=== PATIENT | male | born 1950 | race Caucasian/White ===

== ENCOUNTER 2017-02-05 11:18 | Emergency (ER) | payer BC, OTHER ==
--- NOTE | 2017-02-05 11:29 | ER Document Report ---
ED General - General Stated Complaint: FALL FACE INJURY Time Seen by Provider: 02/05/17 11:25 Mode of Arrival: Ambulatory Information source: Patient Notes: 66-year-old male presents after mechanical fall striking his face and his head. Patient is on baby aspirin daily. Patient notes that his shoelace got stuck on the tree branch that he was cutting when he turned he fell. Patient denies any chest pain shortness breath difficulty breathing or any other concerns associated with this for - HPI Onset: Just prior to arrival Onset/Duration: Sudden Quality of pain: Achy Severity: None Pain Level: Denies Associated symptoms: None Exacerbated by: Denies Relieved by: Denies Similar symptoms previously: No Recently seen / treated by doctor: No Past Medical History - Social History Smoking Status: Never Smoker Cigarette use (# per day): No Chew tobacco use (# tins/day): No Smoking Education Provided: No Family History: Reviewed & Not Pertinent Review of Systems - Review of Systems Notes: REVIEW OF SYSTEMS: CONSTITUTIONAL : Denies fever, chills, or sweats. Denies recent illness. EENT: Denies eye, ear, throat, or mouth pain or symptoms. Denies nasal or sinus congestion or discharge. Denies throat, tongue, or mouth swelling or difficulty swallowing. CARDIOVASCULAR: Denies chest pain. Denies palpitations or racing or irregular heart beat. Denies ankle edema. RESPIRATORY: Denies cough, cold, or chest congestion. Denies shortness of breath, difficulty breathing, or wheezing. GASTROINTESTINAL: Denies abdominal pain or distention. Denies nausea, vomiting , or diarrhea. Denies blood in vomitus, stools, or per rectum. Denies black, tarry stools. Denies constipation. GENITOURINARY: Denies difficulty urinating, painful urination, burning, frequency, blood in urine, or discharge. FEMALE GENITOURINARY: Denies vaginal bleeding, heavy or abnormal periods, irregular periods. Denies vaginal discharge or odor. MUSCULOSKELETAL: Denies back or neck pain or stiffness. Denies joint pain or swelling. SKIN: Abrasion chin to face HEMATOLOGIC : Denies easy bruising or bleeding. LYMPHATIC: Denies swollen, enlarged glands. NEUROLOGICAL: Denies confusion or altered mental status. Denies passing out or loss of consciousness. Denies dizziness or lightheadedness. Denies headache. Denies weakness or paralysis or loss of use of either side. Denies problems with gait or speech. Denies sensory loss, numbness, or tingling. Denies seizures. PSYCHIATRIC: Denies anxiety or stress. Denies depression, suicidal ideation, or homicidal ideation. ALL OTHER SYSTEMS REVIEWED AND NEGATIVE. PHYSICAL EXAMINATION: GENERAL: Well-appearing, well-nourished and in no acute distress. HEAD: Contusions noted to anterior frontal scalp nasal bridge EYES: Pupils equal round and reactive to light, extraocular movements intact, conjunctiva are normal. ENT: Nares patent, oropharynx clear without exudates. Moist mucous membranes. NECK: Normal range of motion, supple without lymphadenopathy LUNGS: Breath sounds clear to auscultation bilaterally and equal. No wheezes rales or rhonchi. HEART: Regular rate and rhythm without murmurs ABDOMEN: Soft, nontender, nondistended abdomen. No guarding, no rebound. No masses appreciated. Female : deferred Musculoskeletal: Normal range of motion, no pitting or edema. No cyanosis. NEUROLOGICAL: Cranial nerves grossly intact. Normal speech, normal gait. Normal sensory, motor exams PSYCH: Normal mood, normal affect. SKIN: Skin abrasions noted no laceration Dictation was performed using [email or web address]. voice recognition software Physical Exam - Vital signs Vitals: Temp Pulse Resp BP Pulse Ox 97.9 F 80 20 113/67 96 02/05/17 11:29 02/05/17 11:29 02/05/17 11:29 02/05/17 11:29 02/05/17 11:29 Course - Re-evaluation Re-evalutation: 02/05/17 11:29 CT imaging is pending, patient has probable nasal fracture, his nasal airways otherwise intact there is no active bleeding no septal hematoma Tetanus will be updated 02/05/17 12:25 CT imaging noted no significant abnormality, there was a possibility of a hairline fracture on the orbital floor however the patient has no tenderness there otherwise has full range of motion of his pupils. Patient will be given strict follow-up precautions family is happy with this plan After performing a Medical Screening Examination, I estimate there is LOW risk for INTRACRANIAL HEMORRHAGE, UNSTABLE SPINE FRACTURE, CENTRAL CORD SYNDROME, CAUDA EQUINA, THORACIC AORTIC DISSECTION, PNEUMOTHORAX, PERFORATED BOWEL, RUPTURED ABDOMINAL AORTIC ANEURYSM, ACUTE TENDON RUPTURE, COMPARTMENT SYNDROME, or OPEN FRACTURE, thus I consider the discharge disposition reasonable. Also, there is no evidence or peritonitis, sepsis, or toxicity. I have reevaluated this patient multiple times and no significant life threatening changes are noted. The patient and I have discussed the diagnosis and risks, and we agree with discharging home to follow-up with their primary doctor with the understanding that symptoms and presentations can change. We also discussed returning to the Emergency Department immediately if new or worsening symptoms occur. We have discussed the symptoms which are most concerning (e.g., bloody stool, fever, changing or worsening pain, vomiting) that necessitate immediate return. - Vital Signs Vital signs: Temp Pulse Resp BP Pulse Ox 97.9 F 80 11 L 115/73 95 02/05/17 11:29 02/05/17 11:29 02/05/17 12:01 02/05/17 12:01 02/05/17 12:01 - Diagnostic Test Radiology reviewed: Image reviewed, Reports reviewed Discharge - Discharge Clinical Impression: Syncope and collapse Facial injury Qualifiers: Encounter type: initial encounter Qualified Code(s): S09.93XA - Unspecified injury of face, initial encounter Condition: Stable Disposition: HOME, SELF-CARE Instructions: Abrasions of the Face ([facility]) Referrals: FLACO COLÓN MD [Primary Care Provider] - Follow up in 3-5 days
[2017-02-05] MEDS ORDERED: DIPH/PERTUSS(ACELL)/TETANUS VAC/PF 0.5 ML SYR (>=10YO) IM ONE (11:31)
--- NOTE | 2017-02-05 12:00 | RADIOLOGY REPORT (SQ) ---
EXAM DESCRIPTION: CT HEAD WITHOUT COMPLETED DATE/TIME: 02/05/2017 11:50 am REASON FOR STUDY: fall COMPARISON: CT facial bones same date TECHNIQUE: Axial images acquired through the brain without intravenous contrast. Images reviewed wi th bone, brain and subdural windows. Images stored on PACS. All CT scanners at this facility use dose modulation, iterative reconstruction, and/or weight based d osing when appropriate to reduce radiation dose to as low as reasonably achievable (ALARA). [facility]: Dose Right [facility]: CareDose [facility]: Dose Right [facility]: Teradose 4D [facility]: Smart [employer] RADIATION DOSE: Up-to-date CT equipment and radiation dose reduction techniques were employed. CTDIv ol: 64.6 mGy. DLP: 1163 mGy-cm. mGy. LIMITATIONS: None. FINDINGS: VENTRICLES: Normal size and contour. CEREBRUM: No masses. No hemorrhage. No midline shift. No evidence for acute infarction. Normal gra y/white matter differentiation. No areas of low density in the white matter. CEREBELLUM: No masses. No hemorrhage. No alteration of density. No evidence for acute infarction. EXTRAAXIAL SPACES: No fluid collections. No masses. ORBITS AND GLOBE: No intra- or extraconal masses. Normal contour of globe without masses. CALVARIUM: No fracture. PARANASAL SINUSES: Bilateral mucous or serous retention cysts in the floor of the right and left maxi llary sinuses SOFT TISSUES: No mass or hematoma. OTHER: No other significant finding. IMPRESSION: NORMAL BRAIN CT WITHOUT CONTRAST. COMMENT: Quality ID # [id number]: Final reports with documentation of one or more dose reduction techniques (e.g., Automated exposure control, adjustment of the mA and/or kV according to patient size, use of iterative reconstruction technique) TECHNICAL DOCUMENTATION: JOB ID: [id number] [email or web address]- All Rights Reserved
--- NOTE | 2017-02-05 12:04 | RADIOLOGY REPORT (SQ) ---
EXAM DESCRIPTION: CT FACIAL AREA WITHOUT COMPLETED DATE/TIME: 02/05/2017 11:50 am REASON FOR STUDY: fall COMPARISON: CT brain same date TECHNIQUE: Noncontrasted images through the facial bones and orbits windowed for bone and soft tissu e. Additional coronal and sagittal reconstructed images reviewed. All images stored on PACS. All CT scanners at this facility use dose modulation, iterative reconstruction, and/or weight based d osing when appropriate to reduce radiation dose to as low as reasonably achievable (ALARA). [facility]: Dose Right [facility]: CareDose [facility]: Dose Right [facility]: Teradose 4D [facility]: [employer] RADIATION DOSE: Up-to-date CT equipment and radiation dose reduction techniques were employed. CTDIv ol: 30.4 mGy. DLP: 593 mGy-cm. mGy. LIMITATIONS: None. FINDINGS: FACIAL BONES: Question nondisplaced hairline right orbital floor fracture marked with arro ws on axial image 44 and 45. There is no adjacent hemorrhage in the orbital floor extraconal fat. N o air-fluid level in the right maxillary sinus. Remainder of the facial bones are intact. ORBITS: Symmetric intact globes and retroorbital soft tissues. PARANASAL SINUSES: Mucous membrane thickening and mucus or serous retention cysts in the floor of the right and left maxillary sinuses. Mild mucous membrane thickening along the left maxillary sinus ou tlet. Paranasal sinuses are otherwise unremarkable. SOFT TISSUES: No mass or edema. INFERIOR BRAIN: Limited view. No acute findings. OTHER: No other significant finding. IMPRESSION: Question hairline nondisplaced fracture through the right orbital floor seen on axial im ages only TECHNICAL DOCUMENTATION: JOB ID: [id number] Quality ID # [id number]: Final reports with documentation of one or more dose reduction techniques (e.g., Au tomated exposure control, adjustment of the mA and/or kV according to patient size, use of iterative reconstruction technique) 2010 [employer]- All Rights Reserved
[2017-02-05 13:08] VITALS: BP 115/72
== END 2017-02-05 13:08 | disposition home or self-care (01) ==
LOC: ER 11:18
DX: S09.93XA Unspecified injury of face, initial encounter (principal); R55 Syncope and collapse; W01.0XXA Fall on same level from slipping, tripping and stumbling without subsequent striking against object, initial encounter; Z23 Encounter for immunization
CPT/HCPCS: 70450; 70486; 90471; 90715; 99284

== ENCOUNTER 2017-03-21 10:48 | Emergency (ER) | payer BC, OTHER ==
--- NOTE | 2017-03-21 11:03 | ER Document Report ---
ED Syncope and Near Syncope - General Chief Complaint: Syncope Stated Complaint: POSSIBLE SYNCOPE Time Seen by Provider: 03/21/17 10:58 Mode of Arrival: Medic Information source: Patient TRAVEL OUTSIDE OF THE [place] IN LAST 30 DAYS: No - HPI Patient complains to provider of: Fainting Episode witnessed (by whom): Yes - STAFF & CUSTOMERS @ [facility] Single episoded occurred: JUST PRIOR TO E.D. Symptoms prior to episode: Abdominal pain - CRAMPY, Lightheaded. No: Fever, Headache, Palpitations, Racing heart, Short of breath Position/Activity at time of episode: Standing Details of activity: FELT URGENCY FOR BM, WAS HURRYING TO RESTROOM Quality of pain: Cramping Severity: Mild Context: Collapsed, Incontinent of stool, Lost consciousness. denies: Confused after event, Seizure activity observed Duration of LOC (min): LESS THAN 1 Injury location: Face - R. MAXILLARY & ZYGOMATIC Current symptoms: None/feels back to normal Similar symptoms previously: Yes - Related Data Allergies/Adverse Reactions: No Known Allergies Allergy (Verified 03/21/17 11:07) Past Medical History - General Information source: Patient - Social History Smoking Status: Never Smoker Cigarette use (# per day): No Chew tobacco use (# tins/day): No Frequency of alcohol use: Rare Drug Abuse: None Lives with: Spouse/Significant other Family History: Reviewed & Not Pertinent Patient has suicidal ideation: No Patient has homicidal ideation: No - Past Medical History Cardiac Medical History: Reports: Hx Hypertension Pulmonary Medical History: Reports: None EENT Medical History: Reports: None Neurological Medical History: Reports: None Endocrine Medical History: Reports: None Renal/ Medical History: Reports: None Malignancy Medical History: Reports None GI Medical History: Reports: None Musculoskeltal Medical History: Reports Hx Arthritis Psychiatric Medical History: Reports: None Surgical Hx: Negative - Immunizations Hx Diphtheria, Pertussis, Tetanus Vaccination: Yes - Pt reports he is "Probably due" Review of Systems - Review of Systems Constitutional: See HPI EENT: No symptoms reported Cardiovascular: Syncope Respiratory: No symptoms reported Gastrointestinal: See HPI Genitourinary: No symptoms reported Musculoskeletal: No symptoms reported Skin: No symptoms reported Hematologic/Lymphatic: No symptoms reported. denies: Easy bleeding, Easy bruising Neurological/Psychological: See HPI Physical Exam - Vital signs Vitals: Temp 98.6 F 10/28/17 10:50 Interpretation: Hypotensive. No: Tachycardic, Tachypneic, Febrile - General General appearance: Appears well, Alert In distress: None - HEENT Head: Normocephalic Eyes: Normal. No: Pale conjunctiva Conjunctiva: Normal Ears: Normal Nasal: Normal Mouth/Lips: Normal Mucous membranes: Normal Pharynx: Normal Neck: Normal, Supple - Respiratory Respiratory status: No respiratory distress Breath sounds: Normal - Cardiovascular Rhythm: Regular Heart sounds: Normal auscultation Murmur: No - Abdominal Inspection: Normal Distension: No distension Bowel sounds: Hypoactive Tenderness: Nontender - Back Back: Normal - Extremities General upper extremity: Normal inspection General lower extremity: Normal inspection. No: Tender, Edema - Neurological Neuro grossly intact: Yes Cognition: Normal Orientation: AAOx4 - Psychological Associated symptoms: Normal affect, Normal mood - Skin Skin Temperature: Warm Skin Moisture: Dry Skin Color: Normal Skin Turgor: Elastic Skin irregularity: other - ABRASION R. MALAR AREA, PARTIAL THICKNESS Course - Re-evaluation Re-evalutation: 03/21/17 13:23 Patient states he is much improved. Denies complaints. Tolerated orthostatic testing well. Will discharge to home care with outpatient follow-up. - Vital Signs Vital signs: Temp Pulse Resp BP Pulse Ox 98.6 F 85 10 L 134/76 H 98 03/21/17 10:50 03/21/17 12:45 03/21/17 11:00 03/21/17 12:45 03/21/17 11:00 - Laboratory Result Diagrams: 03/21/17 10:55 03/21/17 10:55 Laboratory results interpreted by me: 03/21/17 03/21/17 10:55 11:15 Glucose 146 H Direct Bilirubin 0.5 H Urine Ketones TRACE H Urine Urobilinogen 2.0 H - EKG Interpretation by Mn EKG shows normal: Sinus rhythm, [place], Intervals, QRS Complexes. abnormal: ST-T Waves - ANT/LAT T ABNLS, NS Rate: Normal Rhythm: NSR Discharge - Discharge Clinical Impression: Enteritis, Occult blood positive stool Syncope Qualifiers: Syncope type: vasovagal syncope Qualified Code(s): R55 - Syncope and collapse Abrasion of face Qualifiers: Encounter type: initial encounter Qualified Code(s): S00.81XA - Abrasion of other part of head, initial encounter Condition: Stable Disposition: HOME, SELF-CARE Instructions: Syncopal Episode ([facility]), Gastroenteritis (adult) ([facility]), Positive Test for Blood in Stool ([facility]) Additional Instructions: REST, DRINK PLENTY OF FLUIDS. FOLLOW UP WITH YOUR PRIMARY CARE PROVIDER, YOU MAY NEED FURTHER TESTS DONE BECAUSE OF BLOOD FOUND IN YOUR STOOL. RETURN TO E.R. IF PROBLEMS, ANY TIME.
[2017-03-21 12:02] LABS: ABSOLUTE BASOPHILS # (AUTO) 0.1 10^3/uL (0.0-0.2); ABSOLUTE EOSINOPHILS # (AUTO) 0.2 10^3/uL (0.0-0.6); ABSOLUTE LYMPHOCYTES (AUTO) 2.3 10^3/uL (0.5-4.7); ABSOLUTE MONOCYTES (AUTO) 0.7 10^3/uL (0.1-1.4); ABSOLUTE NEUT (AUTO) 4.1 10^3/uL (1.7-8.2); BASOPHILS % (AUTO) 0.7 % (0-2); EOSINOPHILS % (AUTO) 2.8 % (0-6); HEMATOCRIT 41.9 % (37.9-51.0); HEMOGLOBIN 14.5 g/dL (13.5-17.0); HGB HCT DIFFERENCE 1.6; LYMPHOCYTES % (AUTO) 31.4 % (13-45); MEAN CORPUSCULAR HEMOGLOBIN 32.4 pg (27.0-33.4); MEAN CORPUSCULAR HGB CONC 34.7 g/dL (32.0-36.0); MEAN CORPUSCULAR VOLUME 93 fl (80-97); MONOCYTES % (AUTO) 9.5 % (3-13); RED BLOOD COUNT 4.48 10^6/uL (4.35-5.55); SEGMENTED NEUTROPHILS % (AUTO) 55.6 % (42-78); WHITE BLOOD COUNT 7.4 10^3/uL (4.0-10.5)
[2017-03-21 12:08] LABS: APPEARANCE,URINE SLIGHTLY-CLOUDY; BILIRUBIN,URINE NEGATIVE (NEGATIVE); GLUCOSE, URINE NEGATIVE (NEGATIVE); KETONES,URINE TRACE mg/dL (NEGATIVE); LEUKOCYTE ESTERASE,URINE NEGATIVE (NEGATIVE); NITRITE,URINE NEGATIVE (NEGATIVE); PROTEIN,URINE NEGATIVE (NEGATIVE); URINE SPECIFIC GRAVITY 1.013
[2017-03-21 12:16] LABS: ALANINE AMINOTRANSFERASE 36 U/L (21-72); ALKALINE PHOSPHATASE 65 U/L (38-126); ANION GAP 12 (5-19); ASPARTATE AMINO TRANSFERASE 26 U/L (17-59); BILIRUBIN,DIRECT 0.5 mg/dL (0.0-0.4); BILIRUBIN,TOTAL 0.8 mg/dL (0.2-1.3); BLOOD UREA NITROGEN 16 mg/dL (7-20); CALCIUM 9.2 mg/dL (8.4-10.2); CARBON DIOXIDE 29 mmol/L (22-30); CHLORIDE 103 mmol/L (98-107); GLUCOSE 146 mg/dL (75-110); POTASSIUM 3.8 mmol/L (3.6-5.0); SODIUM 143.8 mmol/L (137-145); TOTAL PROTEIN 6.7 g/dL (6.3-8.2)
[2017-03-21 12:28] LABS: CREATINE KINASE MB 2.13 ng/mL (<4.55)
[2017-03-21 12:29] LABS: TROPONIN I < 0.012 ng/mL
[2017-03-21 12:46] LABS: PROTHROMBIN TIME 13.7 SEC (11.4-15.4)
--- NOTE | 2017-03-21 13:39 | EKG REPORT ---
SEVERITY:- BORDERLINE ECG - SINUS RHYTHM BORDERLINE T ABNORMALITIES, ANT-LAT LEADS : Confirmed by: Delbert Yun 21-Mar-2017 13:38:59
[2017-03-21 13:40] VITALS: BP 121/75
== END 2017-03-21 13:44 | disposition home or self-care (01) ==
LOC: ER 10:48
DX: S00.81XA Abrasion of other part of head, initial encounter (principal); K52.9 Noninfective gastroenteritis and colitis, unspecified; R19.5 Other fecal abnormalities; R55 Syncope and collapse; X58.XXXA Exposure to other specified factors, initial encounter
CPT/HCPCS: 36415; 80053; 81001; 82272; 82553; 84484; 85025; 85610; 85730; 93005; 93010; 99284

== ENCOUNTER → 2017-05-21 | Outpatient (CLI) | payer MEDICARE, OTHER ==
--- NOTE | 2017-05-21 14:34 | RADIOLOGY REPORT (SQ) ---
EXAM DESCRIPTION: U/S RETROPERITON (RENAL/AORTA) COMPLETED DATE/TIME: 05/21/2017 2:13 pm REASON FOR STUDY: CALCULUS OF KIDNEY WITH CALCULUS OF URETER (N20.2) N20.2 CALCULUS OF KIDNEY WITH CALCULUS OF URETER COMPARISON: None. TECHNIQUE: Dynamic and static grayscale images acquired of the kidneys and bladder and recorded on P ACS. Additional selected color Doppler and spectral images recorded. LIMITATIONS: None. FINDINGS: RIGHT KIDNEY: 12.6 cm in length. Normal echogenicity. A complex area is identified me asuring 2.5 x 2.3 x 2.8 cm in diameters which may represent a complex cyst with a thick walled international logistics manager al septation. CT may be of value for further evaluation. No hydronephrosis. No calcifications. LEFT KIDNEY: 12.2 cm in length. Normal echogenicity. No solid or suspicious masses. There is m ild hydronephrosis of the left kidney and the possibility of a distal obstruction cannot be excluded. Echogenic foci are identified most consistent with nonobstructing renal calculi. BLADDER: No masses. OTHER FINDINGS: No other significant finding. IMPRESSION: Echogenic foci in the left kidney consistent with nonobstructing renal calculi. There i s mild hydronephrosis of the left kidney and the possibility of a distal obstruction cannot be exclud ed. Complex area in the right kidney as noted above. CT may be of value for further evaluation. Ot her findings as noted above TECHNICAL DOCUMENTATION: JOB ID: [id number] [employer]- All Rights Reserved
== END ==
LOC: RAD 13:07
PROVIDERS: ATTEND Family Medicine
DX: N20.2 Calculus of kidney with calculus of ureter (principal)
CPT/HCPCS: 76770

== ENCOUNTER → 2017-08-12 | Outpatient (CLI) | payer MEDICARE, OTHER ==
--- NOTE | 2017-08-12 09:52 | RADIOLOGY REPORT (SQ) ---
EXAM DESCRIPTION: CT ABD/PELVIS WITH IV ONLY COMPLETED DATE/TIME: 08/12/2017 9:07 am REASON FOR STUDY: CYSTIC DISEASE OF KIDNEY (Q61.9) Q61.9 CYSTIC KIDNEY DISEASE, UNSPECIFIED COMPARISON: None. TECHNIQUE: CT scan of the abdomen and pelvis performed using helical scanning technique with dynamic intravenous contrast injection. No oral contrast. Images reviewed with lung, soft tissue, and bone windows. Reconstructed coronal and sagittal MPR images reviewed. Delayed images for evaluation of the urinary system also acquired. All images stored on PACS. All CT scanners at this facility use dose modulation, iterative reconstruction, and/or weight based d osing when appropriate to reduce radiation dose to as low as reasonably achievable (ALARA). [facility]: Dose Right [facility]: CareDose [facility]: Dose Right [facility]: Teradose 4D [facility]: [employer] CONTRAST TYPE AND DOSE: contrast/concentration: Isovue 370.00 mg/ml; Total Contrast Delivered: 100.0 ml; Total Saline Delivered: 72.0 ml RENAL FUNCTION: Creatinine 0.9 RADIATION DOSE: CT Rad equipment meets quality standard of care and radiation dose reduction techniq ues were employed. CTDIvol: 22.5 - 23.3 mGy. DLP: 2432 mGy-cm.. LIMITATIONS: None. FINDINGS: LOWER CHEST: No significant findings. No nodules or infiltrates. LIVER: Normal size. No masses. No dilated ducts. SPLEEN: Normal size. No focal lesions. PANCREAS: No masses. No significant calcifications. No adjacent inflammation or peripancreatic fluid collections. Pancreatic duct not dilated. GALLBLADDER: No identified stones by CT criteria. No inflammatory changes to suggest cholecystitis. ADRENAL GLANDS: No significant masses or asymmetry. RIGHT KIDNEY AND URETER: 3 cm cyst. No solid masses. Renal calculi measuring up to about 4 mm. N o hydronephrosis or hydroureter. LEFT KIDNEY AND URETER: No solid masses. Renal calculi measuring up to about 6 mm. No hydronephro sis or hydroureter. AORTA AND VESSELS: No aneurysm. No dissection. Renal arteries, SMA, celiac without stenosis. RETROPERITONEUM: No retroperitoneal adenopathy, hemorrhage or masses. BOWEL AND PERITONEAL CAVITY: Mild diverticulosis. No masses or inflammatory changes. No free fluid o r peritoneal masses. APPENDIX: Normal. PELVIS: No mass. No free fluid. Normal bladder. ABDOMINAL WALL: No masses. No hernias. BONES: No acute findings. OTHER: No other significant finding. IMPRESSION: Nonobstructing renal calculi. Benign cyst right kidney. TECHNICAL DOCUMENTATION: JOB ID: [id number] Quality ID # [id number]: Final reports with documentation of one or more dose reduction techniques (e.g., Au tomated exposure control, adjustment of the mA and/or kV according to patient size, use of iterative reconstruction technique) 2010 [employer]- All Rights Reserved Reading location - IP/workstation name: [email or web address]
== END ==
LOC: RAD 08:24
PROVIDERS: ATTEND Family Medicine
DX: Q61.9 Cystic kidney disease, unspecified (principal)
CPT/HCPCS: 74177; 82565

== ENCOUNTER 2018-05-29 10:38 | Emergency (ER) | payer MEDICARE, OTHER ==
[2018-05-29 11:01] VITALS: BP 122/91
--- NOTE | 2018-05-29 11:06 | ER Document Report ---
ED Syncope and Near Syncope - General Chief Complaint: Syncope Stated Complaint: SYNCOPE Time Seen by Provider: 05/29/18 10:54 Mode of Arrival: Medic Information source: Patient Notes: 68-year-old male brought to emergency department by EMS status post syncopal episode. Patient states that he was having a bowel movement when he began feeling flushed, lightheaded, nauseated. Patient states that the next thing he knew he was lying on the floor with his standing over him. The states that she heard the patient's tablet drop while he was in the bathroom. She went to check on him and found him slumped over. She helped him to the ground. Patient then woke up. EMS was contacted. Patient states that he does have a history of vasovagal syncope. He states that this is similar to previous. He denies any chest pain, shortness of breath, abdominal pain, nausea, vomiting, vision changes, speech changes, numbness, tingling, weakness. Patient has no current complaints in the emergency department. TRAVEL OUTSIDE OF THE [place] IN LAST 30 DAYS: No - HPI Patient complains to provider of: Fainting Episode witnessed (by whom): No Symptoms prior to episode: Dizziness, Lightheaded, Nausea/vomiting Position/Activity at time of episode: Sitting Quality of pain: No pain Severity: None Pain Level: Denies Context: Became unresponsive Injury location: None Current symptoms: None/feels back to normal Similar symptoms previously: Yes Recently seen / treated by doctor: No - Related Data Allergies/Adverse Reactions: No Known Allergies Allergy (Verified 03/21/17 11:07) Past Medical History - General Information source: Patient - Social History Smoking Status: Never Smoker Family History: Reviewed & Not Pertinent - Past Medical History Cardiac Medical History: Reports: Hx Hypertension Endocrine Medical History: Reports: Hx Diabetes Mellitus Type 2 Renal/ Medical History: Denies: Hx Peritoneal Dialysis Musculoskeletal Medical History: Reports Hx Arthritis - Immunizations Hx Diphtheria, Pertussis, Tetanus Vaccination: Yes - Pt reports he is "Probably due" Review of Systems - Review of Systems Constitutional: No symptoms reported EENT: No symptoms reported Cardiovascular: Syncope, Lightheaded Respiratory: No symptoms reported Gastrointestinal: No symptoms reported Genitourinary: No symptoms reported Musculoskeletal: No symptoms reported Skin: No symptoms reported Hematologic/Lymphatic: No symptoms reported Neurological/Psychological: No symptoms reported -: Yes All other systems reviewed and negative Physical Exam - Vital signs Vitals: Temp Pulse Resp BP Pulse Ox 97.7 F 76 12 122/91 H 100 05/29/18 10:55 05/29/18 10:55 05/29/18 10:55 05/29/18 10:55 05/29/18 10:55 - Notes Notes: PHYSICAL EXAMINATION: GENERAL: Well-appearing, well-nourished and in no acute distress. HEAD: Atraumatic, normocephalic. EYES: Pupils equal round and reactive to light, extraocular movements intact, sclera anicteric, conjunctiva are normal. ENT: Nares patent, oropharynx clear without exudates. Moist mucous membranes. NECK: Normal range of motion, supple without lymphadenopathy LUNGS: Breath sounds clear to auscultation bilaterally and equal. No wheezes rales or rhonchi. HEART: Regular rate and rhythm without murmurs ABDOMEN: Soft, nontender, nondistended abdomen. No guarding, no rebound. No masses appreciated. Musculoskeletal: Normal range of motion, no pitting or edema. No cyanosis. NEUROLOGICAL: Cranial nerves grossly intact. Normal speech, normal gait. Normal sensory, motor exams PSYCH: Normal mood, normal affect. SKIN: Warm, Dry, normal turgor, no rashes or lesions noted. Course - Re-evaluation Re-evalutation: 05/29/18 11:06 EKG: Ventricular rate 70, WI interval 212, castration 94, QTc 449, sinus rhythm. PVC. No ST segment elevation or depression. 05/29/18 11:49 Labs obtained. No acute process identified. EKG did not show an acute process. Patient continues to be asymptomatic. I will discharge him home. Patient instructed to follow-up with his primary care physician this week, to continue taking his medications as directed, and to return for worsening symptoms. Patient is agreeable with plan of care. - Vital Signs Vital signs: Temp Pulse Resp BP Pulse Ox 97.7 F 76 12 122/91 H 100 05/29/18 10:55 05/29/18 10:55 05/29/18 10:55 05/29/18 10:55 05/29/18 10:55 - Laboratory Result Diagrams: 05/29/18 10:41 05/29/18 10:41 Laboratory results interpreted by me: 05/29/18 05/29/18 10:41 10:41 RBC 3.82 L Hgb 13.1 L Hct 37.0 L MCH 34.2 H Glucose 126 H ALT 19 L Creatine Kinase 195 H Discharge - Discharge Clinical Impression: Vasovagal syncope Condition: Good Disposition: HOME, SELF-CARE Instructions: Vasovagal Symptoms ([facility]) Referrals: FLACO COLÓN MD [Primary Care Provider] - Follow up as needed
[2018-05-29 11:12] LABS: ABSOLUTE EOSINOPHILS # (AUTO) 0.2 10^3/uL (0.0-0.6); ABSOLUTE LYMPHOCYTES (AUTO) 1.6 10^3/uL (0.5-4.7); ABSOLUTE MONOCYTES (AUTO) 0.7 10^3/uL (0.1-1.4); ABSOLUTE NEUT (AUTO) 6.7 10^3/uL (1.7-8.2); BASOPHILS % (AUTO) 0.4 % (0-2); EOSINOPHILS % (AUTO) 1.7 % (0-6); HEMOGLOBIN 13.1 g/dL (13.5-17.0); LYMPHOCYTES % (AUTO) 17.6 % (13-45); MEAN CORPUSCULAR HEMOGLOBIN 34.2 pg (27.0-33.4); MEAN CORPUSCULAR HGB CONC 35.4 g/dL (32.0-36.0); MEAN CORPUSCULAR VOLUME 97 fl (80-97); MONOCYTES % (AUTO) 7.7 % (3-13); PLATELET COUNT 220 10^3/uL (150-450); RED BLOOD COUNT 3.82 10^6/uL (4.35-5.55); RED CELL DISTRIBUTION WIDTH 13.8 % (11.5-14.0); SEGMENTED NEUTROPHILS % (AUTO) 72.6 % (42-78); TOTAL CELLS COUNTED % (AUTO) 100 %; WHITE BLOOD COUNT 9.2 10^3/uL (4.0-10.5)
[2018-05-29 11:28] LABS: ALANINE AMINOTRANSFERASE 19 U/L (21-72); ALKALINE PHOSPHATASE 76 U/L (38-126); ANION GAP 10 (5-19); ASPARTATE AMINO TRANSFERASE 24 U/L (17-59); BILIRUBIN,DIRECT 0.3 mg/dL (0.0-0.4); BILIRUBIN,TOTAL 0.5 mg/dL (0.2-1.3); BLOOD UREA NITROGEN 16 mg/dL (7-20); CARBON DIOXIDE 27 mmol/L (22-30); CHLORIDE 104 mmol/L (98-107); CREATINE KINASE 195 U/L (55-170); GLUCOSE 126 mg/dL (75-110); POTASSIUM 3.6 mmol/L (3.6-5.0); SODIUM 140.7 mmol/L (137-145); TOTAL PROTEIN 6.8 g/dL (6.3-8.2)
[2018-05-29 11:38] LABS: CREATINE KINASE MB 1.43 ng/mL (<4.55)
[2018-05-29 11:39] LABS: TROPONIN I < 0.012 ng/mL
--- NOTE | 2018-05-29 12:41 | EKG REPORT ---
SEVERITY:- BORDERLINE ECG - SINUS RHYTHM VENTRICULAR PREMATURE COMPLEX BORDERLINE T WAVE ABNORMALITIES : Confirmed by: Susan Angulo MD 29-May-2018 12:40:55
== END 2018-05-29 12:01 | disposition home or self-care (01) ==
LOC: ER 10:38
DX: R55 Syncope and collapse (principal); R42 Dizziness and giddiness; R11.2 Nausea with vomiting, unspecified; I10 Essential (primary) hypertension; E11.9 Type 2 diabetes mellitus without complications
CPT/HCPCS: 36415; 80053; 82550; 82553; 84484; 85025; 93005; 93010; 99284

== ENCOUNTER 2018-08-18 00:22 | Emergency (ER) | payer MEDICARE, OTHER ==
[2018-08-18] MEDS ORDERED: MORPHINE SULFATE 10 MG/ML INJ IV ONE (01:06)
[2018-08-18] MEDS ORDERED: ACETAMINOPHEN 325 MG TABLET PO ONE (01:09)
--- NOTE | 2018-08-18 02:08 | RADIOLOGY REPORT (SQ) ---
CLINICAL HISTORY: back pain, fever COMPARISON: None. TECHNIQUE: XR CHEST 1 VIEW 08/18/2018 1:05 AM CDT FINDINGS: Cardiac silhouette is normal in size. Lungs are clear without consolidation, atelectasis, mass or edema. There is no pleural effusion. There is no pneumothorax. There are no acute osseous findings. IMPRESSION: Clear lungs.
[2018-08-18 02:25] LABS: ABSOLUTE LYMPHOCYTES (AUTO) 1.1 10^3/uL (0.5-4.7); ABSOLUTE MONOCYTES (AUTO) 1.3 10^3/uL (0.1-1.4); ABSOLUTE NEUT (AUTO) 11.8 10^3/uL (1.7-8.2); ALANINE AMINOTRANSFERASE 22 U/L (21-72); ALBUMIN 3.9 g/dL (3.5-5.0); ALKALINE PHOSPHATASE 91 U/L (38-126); ANION GAP 11 (5-19); ASPARTATE AMINO TRANSFERASE 20 U/L (17-59); BASOPHILS % (AUTO) 0.3 % (0-2); BILIRUBIN,DIRECT 0.5 mg/dL (0.0-0.4); BILIRUBIN,TOTAL 0.7 mg/dL (0.2-1.3); BLOOD UREA NITROGEN 19 mg/dL (7-20); CALCIUM 9.1 mg/dL (8.4-10.2); CARBON DIOXIDE 26 mmol/L (22-30); CHLORIDE 100 mmol/L (98-107); EOSINOPHILS % (AUTO) 0.1 % (0-6); GLUCOSE 149 mg/dL (75-110); HEMATOCRIT 39.3 % (37.9-51.0); HEMOGLOBIN 13.6 g/dL (13.5-17.0); LYMPHOCYTES % (AUTO) 7.9 % (13-45); MEAN CORPUSCULAR HEMOGLOBIN 32.7 pg (27.0-33.4); MEAN CORPUSCULAR HGB CONC 34.5 g/dL (32.0-36.0); MEAN CORPUSCULAR VOLUME 95 fl (80-97); MONOCYTES % (AUTO) 8.9 % (3-13); PLATELET COUNT 184 10^3/uL (150-450); POTASSIUM 3.7 mmol/L (3.6-5.0); RED BLOOD COUNT 4.15 10^6/uL (4.35-5.55); RED CELL DISTRIBUTION WIDTH 12.8 % (11.5-14.0); SEGMENTED NEUTROPHILS % (AUTO) 82.8 % (42-78); SODIUM 137.1 mmol/L (137-145); TOTAL CELLS COUNTED % (AUTO) 100 %; TOTAL PROTEIN 6.9 g/dL (6.3-8.2); WHITE BLOOD COUNT 14.3 10^3/uL (4.0-10.5)
[2018-08-18] MEDS ORDERED: NORMAL SALINE 1000 ML 1,000 ML IV ONE (03:02)
--- NOTE | 2018-08-18 03:05 | ER Document Report ---
ED General - General Chief Complaint: Weakness Stated Complaint: FATIQUE Time Seen by Provider: 08/18/18 00:35 Primary Care Provider: FLACO COLÓN MD [Primary Care Provider] - 08/20/18 Notes: Patient is a 68-year-old male presents with complaint of fever in the right lower back pain. He said the fever just started today. He felt weak. He says his has had fever and been sick as well. He says the right lower back pain is been ongoing for a few days. He says he has a history of some right hip and right back issues and has had injections in both the hip and back in the past. Most recent injection was in the hip and that was over 6 weeks ago. He says he does not have a lot of pain and hip at this time. Is not having his typical sciatica. He says the only pain he has is over the right lumbar paraspinal musculature and is worse with movement. No vomiting. No abdominal pain. No loss of bowel control. No urinary tension. No dysuria. TRAVEL OUTSIDE OF THE [place] IN LAST 30 DAYS: No - Related Data Allergies/Adverse Reactions: No Known Allergies Allergy (Verified 03/21/17 11:07) Past Medical History - Social History Smoking Status: Never Smoker Frequency of alcohol use: None Drug Abuse: None Family History: Reviewed & Not Pertinent - Past Medical History Cardiac Medical History: Reports: Hx Hypertension Endocrine Medical History: Reports: Hx Diabetes Mellitus Type 2 Renal/ Medical History: Denies: Hx Peritoneal Dialysis Musculoskeletal Medical History: Reports Hx Arthritis - Immunizations Hx Diphtheria, Pertussis, Tetanus Vaccination: Yes - Pt reports he is "Probably due" Review of Systems - Review of Systems Notes: My Normal Review Basic REVIEW OF SYSTEMS: CONSTITUTIONAL : Fever EENT: Denies eye, ear, throat, or mouth pain or symptoms. Denies nasal or sinus congestion. CARDIOVASCULAR: Denies chest pain. RESPIRATORY: Denies cough, cold, or chest congestion. Denies shortness of breath, difficulty breathing, or wheezing. GASTROINTESTINAL: Denies abdominal pain. Denies nausea, vomiting, or diarrhea. Denies constipation. Last BM: GENITOURINARY: Denies difficulty urinating, painful urination, burning, frequency, or blood in urine. MUSCULOSKELETAL: Right lower back pain SKIN: Denies rash or skin lesions. NEUROLOGICAL: Denies altered mental status or loss of consciousness. Denies headache. Denies weakness or paralysis or loss of use of either side. Denies problems with gait or speech. Denies sensory or motor loss. ALL OTHER SYSTEMS REVIEWED AND NEGATIVE. Physical Exam - Vital signs Vitals: Resp 18 08/18/18 00:26 - Notes Notes: General Appearance: Well nourished, alert, cooperative, no acute distress, mild obvious discomfort. Vitals: reviewed, See vital signs table. Head: no swelling or tenderness to the head Eyes: PERRL, EOMI, Conjuctiva clear Mouth: No decreasd moisture Lungs: No wheezing, No rales, No rhonci, No accessory muscle use, good air exchange bilaterally. Heart: Normal rate, Regular rythm, No murmur, no rub Abdomen: Normal BS, soft, No rigidity, No abdominal tenderness, No guarding, no rebound, no abdominal masses, no organomegaly Back: Some reducible pain palpation of the right lumbar paraspinal musculature. No midline tenderness. No rash. No swelling. Extremities: strength 5/5 in all extremities, good pulses in all extremities, no swelling or tenderness in the extremities, no edema. Skin: warm, dry, appropriate color, no rash Neuro: speech clear, oriented x 3, normal affect, responds appropriately to questions. Course - Re-evaluation Re-evalutation: 08/18/18 03:03 08/18/18 03:04 08/18/18 04:45 The cause of the fever is not 100% clear. Suspect she is probably got similar list was has. He does not have any upper respiratory symptoms. Is not been coughing. He does not have any dysuria or abdominal pain. The only pain he has in his right lower back however this is been ongoing for several days before have her start having a fever. I do not suspect infection from his in jections as his most recent injection was in the right hip and that was actually approximately 6 weeks ago. He has not had a injection into his back in a long time. No vomiting. No diarrhea Dictation of this chart was performed using voice recognition software; therefore, there may be some unintended grammatical errors. 08/18/18 04:46 - Vital Signs Vital signs: Temp Pulse Resp BP Pulse Ox 101.1 F H 18 115/70 94 08/18/18 00:43 08/18/18 00:26 08/18/18 00:43 08/18/18 00:43 - Laboratory Result Diagrams: 08/18/18 00:25 08/18/18 00:25 Laboratory results interpreted by me: 08/18/18 08/18/18 08/18/18 00:25 00:25 03:00 WBC 14.3 H RBC 4.15 L Seg Neutrophils % 82.8 H Lymphocytes % 7.9 L Absolute Neutrophils 11.8 H Glucose 149 H Direct Bilirubin 0.5 H Urine Ketones TRACE H Discharge - Discharge Clinical Impression: Fever Qualifiers: Fever type: unspecified Qualified Code(s): R50.9 - Fever, unspecified Back pain Qualifiers: Back pain location: low back pain Chronicity: acute Back pain laterality: right Sciatica presence: without sciatica Qualified Code(s): M54.5 - Low back pain Condition: Good Disposition: HOME, SELF-CARE Additional Instructions: Please follow up with your doctor in 2 days for reevaluation. Please return to the ER immediately if you develop fevers not responding to Tylenol, vomiting, worsening back pain, weakness or numbness in the legs, rash or if you feel unwell. Referrals: FLACO COLÓN MD [Primary Care Provider] - 08/20/18
[2018-08-18 03:14] LABS: APPEARANCE,URINE SLIGHTLY-CLOUDY; BILIRUBIN,URINE NEGATIVE (NEGATIVE); COLOR,URINE YELLOW; GLUCOSE, URINE NEGATIVE (NEGATIVE); KETONES,URINE TRACE mg/dL (NEGATIVE); LEUKOCYTE ESTERASE,URINE NEGATIVE (NEGATIVE); NITRITE,URINE NEGATIVE (NEGATIVE); PROTEIN,URINE NEGATIVE (NEGATIVE); UROBILINOGEN,URINE NEGATIVE mg/dL (<2.0)
--- NOTE | 2018-08-18 04:01 | RADIOLOGY REPORT (SQ) ---
EXAM DESCRIPTION: CT ABDOMEN WITHOUT IV CONTRAST COMPLETED DATE/TME: 08/18/2018 03:06 CLINICAL HISTORY: 68 years Male, right back and flank pain Comparison:08/12/2017 Technique: No contrast. Coronal and sagittal reformat. This exam was performed according to our departmental dose-optimization program, which includes automated exposure control, adjustment of the mA and/or kV according to patient size and/or use of iterative reconstruction technique.[facility]: Dose Right [facility]: CareDose [facility]: Dose Right [facility]: Teradose 4D [facility]: [email or web address] LIMITATIONS: None Findings: Coronary arterial calcification. Atherosclerotic vascular disease. Moderate L3-L4 vacuum disc desiccation. Grade 1 L5 anterolisthesis. Moderate disc desiccation. Anterior longitudinal ligamentous calcification. Bony demineralization. Emphysematous hyperinflation.Atelectasis/scar. Likely benign renal cyst(s), not definitively characterized. Bilateral nephrolithiasis measures up to 0.7 cm on the right. Bilateral perinephric fat stranding, nonspecific. Moderate fat replacement/atrophy of the left psoas. No ascites. No pneumoperitoneum. No bowel obstruction. No gross evidence of gallbladder inflammation or hepatobiliary obstruction. Normal appendix. Unenhanced lower thorax, abdominopelvic structures, and musculoskeleton appear otherwise grossly unremarkable. Impression: No acute findings. Bilateral nephrolithiasis.
[2018-08-18 04:51] VITALS: BP 109/65
== END 2018-08-18 05:04 | disposition home or self-care (01) ==
LOC: ER 00:22
DX: R50.9 Fever, unspecified (principal); M54.5 Low back pain; I10 Essential (primary) hypertension; E11.9 Type 2 diabetes mellitus without complications
CPT/HCPCS: 99284; 96374; 36415; 85025; 80053; 81001; 71045; 76380; A9270; J2270

== ENCOUNTER → 2018-09-02 | Outpatient (CLI) | payer MEDICARE, OTHER ==
--- NOTE | 2018-09-02 17:42 | XCELERA REPORT ---
[address] [address] Transthoracic Echocardiogram Report Name: ROULA JOSHI Age: 68 yrs Gender: Male : 1950 Patient Status: Outpatient Patient Location: [facility] Study Date: 09/02/2018 01:22 PM Height: 71 in Weight: 247 lb BSA: 2.3 m2 Procedure: A complete two-dimensional transthoracic echocardiogram was performed (2D, M-mode, spectral and color flow Doppler). The study was technically adequate with some images being suboptimal in quality. Reason For Study: SOB Ordering Physician: AJIT SEVILLA Performed By: Ruba Collins Interpretation Summary The left ventricular ejection fraction is normal. There is mild concentric left ventricular hypertrophy. The left ventricle is grossly normal size. Doppler measurements suggest pseudonormalized left ventricular relaxation, which is associated with grade II/IV or mild to moderate diastolic dysfunction Wall motion cannot be accurately commented on, but no definite regional wall motion abnormalities noted. The right ventricular systolic function is normal. The left atrium is mildly dilated. The right atrium is normal. There is a mild amount of mitral regurgitation There is no mitral valve stenosis. There is a mild to moderate amount of aortic regurgitation There is no aortic valve stenosis There is a trace or physiologic amount of tricuspid regurgitation Tricuspid regurgitation jet envelope not well defined to measure RV systolic pressure accurately. The aortic root is not well visualized but is probably normal size. The inferior vena cava appeared normal and decreased > 50% with respiration (RAP 5-10 mmHg) There is no pericardial effusion. MMode/2D Measurements & Calculations RVDd: 3.3 cm LVIDd: 5.9 cm FS: 38.2 % Ao root diam: IVSd: 1.0 cm LVIDs: 3.7 cm EDV(Teich): 3.4 cm 175.3 ml Ao root area: LVPWd: 0.99 cm ESV(Teich): 8.9 cm2 56.8 ml LA dimension: EF(Teich): 67.6 % 4.4 cm LVLd ap4: 8.1 cm SV(MOD-sp4): EDV(MOD-sp4): 80.0 ml 137.0 ml LVLs ap4: 7.5 cm ESV(MOD-sp4): 57.0 ml EF(MOD-sp4): 58.4 % Doppler Measurements & Calculations MV E max raissa: MV P1/2t max raissa: Ao V2 max: AI max raissa: 57.2 cm/sec 58.5 cm/sec 94.1 cm/sec 490.2 cm/sec MV A max raissa: MV P1/2t: 92.1 msec Ao max PG: AI max P.1 cm/sec MVA(P1/2t): 2.4 cm2 3.5 mmHg 96.1 mmHg MV E/A: 0.81 MV dec slope: AI dec slope: 172.1 cm/sec2 185.9 cm/sec2 AI P1/2t: MV dec time: 834.2 msec 0.34 sec LV V1 max PG: PA V2 max: PI end-d raissa: TR max raissa: 3.3 mmHg 63.7 cm/sec 103.2 cm/sec 223.7 cm/sec LV V1 max: PA max P.6 mmHg TR max P.9 cm/sec 20.0 mmHg AV P1/2t-pr_phl: MV P1/2t-pr_phl: 834.2 msec 92.1 msec Left Ventricle The left ventricle is grossly normal size. There is mild concentric left ventricular hypertrophy. The left ventricular ejection fraction is normal. Doppler measurements suggest pseudonormalized left ventricular relaxation, which is associated with grade II/IV or mild to moderate diastolic dysfunction. Wall motion cannot be accurately commented on, but no definite regional wall motion abnormalities noted. Right Ventricle The right ventricle is grossly normal size. There is normal right ventricular wall thickness. The right ventricular systolic function is normal. Atria The right atrium is normal. The left atrium is mildly dilated. Interarterial septum not well visualized and not well dopplered. Cannot comment on ASD/PFO presence. Mitral Valve The mitral valve is grossly normal. There is no mitral valve stenosis. There is a mild amount of mitral regurgitation. Aortic Valve The aortic valve is sclerotic, but shows no functional abnormality. There is no aortic valve stenosis. There is a mild to moderate amount of aortic regurgitation. Tricuspid Valve The tricuspid valve is not well visualized, but is grossly normal. There is no tricuspid stenosis. There is a trace or physiologic amount of tricuspid regurgitation. Tricuspid regurgitation jet envelope not well defined to measure RV systolic pressure accurately. Pulmonic Valve The pulmonic valve is not well visualized. Great Vessels The aortic root is not well visualized but is probably normal size. The inferior vena cava appeared normal and decreased > 50% with respiration (RAP 5-10 mmHg). Effusions There is no pericardial effusion. : AJIT SEVILLA > Delbert Yun
== END ==
LOC: SP 12:48
PROVIDERS: ATTEND Family Medicine Geriatric Medicine
DX: R06.2 Wheezing (principal); R06.02 Shortness of breath
CPT/HCPCS: 93306

== ENCOUNTER → 2018-09-07 | Outpatient (CLI) | payer MEDICARE, OTHER ==
--- NOTE | 2018-09-07 15:08 | RADIOLOGY REPORT (SQ) ---
EXAM DESCRIPTION: VENOUS UNILATERAL LOWER COMPLETED DATE/TIME: 09/07/2018 2:51 pm REASON FOR STUDY: LLE SWELLING/PAIN M79.605 PAIN IN LEFT LEG COMPARISON: None. TECHNIQUE: Dynamic and static matthews scale and color images acquired of the left leg venous system. Se lected spectral images acquired with additional compression and augmentation maneuvers. The contralat eral common femoral vein and saphenofemoral junction were also imaged. Images stored on PACS. LIMITATIONS: None. FINDINGS: COMMON FEMORAL: Acute thrombus throughout. FEMORAL: Acute thrombus throughout. POPLITEAL: Acute thrombus throughout. CALF VESSELS: Acute thrombus throughout. GSV and SSV: Normal compression, augmentation. No visualized echogenic material on matthews scale. No def ects on color images. ANY DEEP VENOUS INSUFFICIENCY: Not evaluated. ANY EVIDENCE OF POPLITEAL CYST: No. OTHER: No other significant finding. CONTRALATERAL COMMON FEMORAL VEIN AND SAPHENOFEMORAL JUNCTION: Normal phasicity, compression and augmentation. No visualized echogenic material on matthews scale. No de fects on color images. IMPRESSION: ACUTE DVT THROUGHOUT THE LEFT LEG. COMMENT: Preliminary report was called by the technologist to the referring clinician's office at t he time of the exam. TECHNICAL DOCUMENTATION: JOB ID: [id number] [employer]- All Rights Reserved Reading location - IP/workstation name: [email or web address]
== END ==
LOC: SP 13:46
PROVIDERS: ATTEND Family Medicine Geriatric Medicine
DX: M79.605 Pain in left leg (principal)
CPT/HCPCS: 93971

== ENCOUNTER → 2018-11-23 | Outpatient (CLI) | payer MEDICARE, OTHER ==
--- NOTE | 2018-11-23 15:30 | RADIOLOGY REPORT (SQ) ---
EXAM DESCRIPTION: FOOT LEFT COMPLETE COMPLETED DATE/TIME: 11/23/2018 2:56 pm REASON FOR STUDY: M79.672 PAIN IN LEFT FOOT M79.672 PAIN IN LEFT FOOT COMPARISON: None. NUMBER OF VIEWS: Three views. TECHNIQUE: AP, lateral and oblique radiographic images acquired of the left foot. LIMITATIONS: None. FINDINGS: MINERALIZATION: Normal. BONES: No acute fracture or dislocation. No worrisome bone lesions. JOINTS: No effusions. No aggressive bony erosions at the 1st metatarsophalangeal joint. SOFT TISSUES: Diffuse 1st metatarsophalangeal joint soft tissue swelling. No foreign body. OTHER: No other significant finding. IMPRESSION: 1st metatarsophalangeal joint soft tissue swelling without underlying fracture or aggres sive bony erosions. TECHNICAL DOCUMENTATION: JOB ID: [id number] [employer]- All Rights Reserved Reading location - IP/workstation name: [email or web address]
== END ==
LOC: RAD 14:22
PROVIDERS: ATTEND Family Medicine Geriatric Medicine
DX: M79.672 Pain in left foot (principal); M79.89 Other specified soft tissue disorders